=== PATIENT | female | born 1970 | race Caucasian/White ===

== ENCOUNTER 2016-09-21 08:13 | Emergency (ER) | payer MEDICAID ==
[2016-09-21 08:28] VITALS: BP 111/73
[2016-09-21 08:38] LABS: Urine Bilirubin 1 mg/dl (NEGATIVE); Urine Blood 250 /ul (NEGATIVE); Urine Ketone Negative (NEGATIVE); Urine Nitrite Negative (NEGATIVE); Urine Protein 100 mg/dL (NEGATIVE); Urine Specific Gravity 1.025 SP.GR. (1.005-1.010); Urine Urobilinogen Normal (NORMAL)
--- NOTE | 2016-09-21 08:46 | ERNOTE ---
ER Female HPI Date of Service: 09/21/16 Stated Complaint: UTI Time Seen by Provider: 09/21/16 08:33 Source: patient Exam Limitations: no limitations Allergies/Adverse Reactions: Allergies codeine Allergy (Unknown, Verified 09/21/16 08:28) Home Medications: HOME MEDICATIONS Cefuroxime Axetil [Ceftin] 250 mg PO Q12H #20 tab 09/21/16 [Last Taken Unknown] - History of Present Illness Narrative: Patient presents to the ED because "I have a UTI". SHe relates that she started having dysuria and some blood in her urine this morning. No abdominal pain. No fever. She had a close family contact with influenza so is on Tamifliu. SHe has had some sinus congestion since having 16 teeth removed. No fever. Not currently on antibiotics. No vomiting, no flank pain. Notices this with urination. Timing: Present: constant Quality: Present: moderate Onset Location: Present: other - no abominal pain, only dysuria Radiation: Present: none Activities at Onset: Present: none Modifying Factors - (Improves): Present: other - nothing Modifying Factors - (Worsens): Present: other - urination Associated Symptoms: Absent: fever/chills, nausea, vomiting, abdominal pain Review of Systems - Review of Systems Constitutional: Absent: fever ENT: Present: nose congestion Respiratory: Absent: shortness of breath Cardiology: Absent: chest pain Gastrointestinal/Abdominal: Absent: vomiting, abdominal pain Genitourinary: Present: See HPI, other - no flank pain - Patient's Past Medical History Patient History - Medical: Other Patient History - Cardiac/Respiratory: No pertinent hx Patient History - Cancer: No Hx of Cancer Patient History - Surgical Procedures: Cholecystectomy, Hysterectomy - Social History Smoking Status: Current every day smoker Have you smoked in the past 12 months: Yes Physical Exam - Physical Exam General Appearance: Present: alert, no apparent distress Eye Exam: Normal inspection: bilateral, PERRL: bilateral Ears, Nose, Throat: Present: other - mild nasal congestion. 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 Absent: motor weakness Skin Exam: Absent: skin rash ED Progress - Results and Orders Patient's Lab Results:: I have reviewed the patient's lab results. - Vital Signs Patient's Vital Signs:: I have reviewed the patient's vital signs. Vital Signs: Vital Signs 09/21/16 08:24 Temperature 36.4 C L Pulse Rate 80 Respiratory 14 Rate Blood Pressure 111/73 O2 Sat by Pulse 97 Oximetry - Progress/Reassessment Chief Complaint: Genitourinary Problem Departure Clinical Impression: UTI (urinary tract infection) - Departure Disposition: Home self-care Instructions: Urinary Tract Infection, Adult, [id number] Additional Instructions: Rest. FLuids. Follow-up with your doctor in 3 days for a re-check. Antibiotic as directed. Return for fever, vomiting, flank pain or if your condition worsens or changes i any way. Referrals: Talat Handley MD [Primary Care Provider] - Prescriptions: Cefuroxime Axetil [Ceftin] 250 mg PO Q12H #20 tab
[2016-09-21 08:47] LABS: Urine Appearance Bloody; Urine Bacteria None Seen; Urine RBC >50 /hpf (0-5)
== END 2016-09-21 09:12 | disposition home or self-care (01) ==
LOC: ER 08:13
DX: N39.0 Urinary tract infection, site not specified (principal); F17.210 Nicotine dependence, cigarettes, uncomplicated; Z90.49 Acquired absence of other specified parts of digestive tract; Z90.710 Acquired absence of both cervix and uterus

== ENCOUNTER 2016-10-06 08:35 | Day surgery (SDC) | payer MEDICAID ==
[~2016-10-06 08:35] MED LIST: RINGERS SOLUTION,LACTATED 1,000 ML IV PRN
[2016-10-06] MEDS ORDERED: RINGERS SOLUTION,LACTATED 1,000 ML IV ONE (09:11)
[2016-10-06 12:25] VITALS: BP 98/62
--- NOTE | 2016-10-07 09:34 | OR ---
Operative Report - Dictated Report Narrative: OPERATIVE REPORT DATE OF OPERATION: 10/06/2016 PREOPERATIVE DIAGNOSIS: No recent dedicated colon studies POSTOPERATIVE DIAGNOSIS: 5 mm and 2 mm areas of polypoid change at 25 cm ( pathology pending) OPERATION: Colonoscopy with hot biopsy forceps polypectomy and snare polypectomy at 25 cm SURGEON: Socorro Felipe MD ANESTHESIA: AMALIA Garay CRNA INDICATIONS FOR PROCEDURE: The patient is a 46-year-old female referred by Dr. Handley. The patient has a long history of irritable bowel syndrome. She had a colonoscopy over 10 years ago. She has very irregular bowels. There is no family history of cancer FINDINGS: Very capacious colon. 5 mm area of possible polypoid change at 25 cm with very small adjacent area of polypoid change (pathology pending) NARRATIVE OF PROCEDURE: The patient was identified in the holding area, and prior to the administration of anesthetic, a multidisciplinary timeout was observed. With the patient in the left lateral position and after the administration of intravenous sedation, the perineum was inspected. There was no evidence of pilonidal disease or skin breakdown. The external appearance of the anus was normal. Sphincter tone was good. The flexible fiberoptic colonoscope was inserted into the rectum which was insufflated with air. The rectal mucosa and submucosal vascular pattern appeared normal, the prep was seen to be complete. The scope was advanced through the sigmoid colon, up the descending colon, and around the splenic flexure where the triangular haustral architecture of the transverse colon was seen. The scope was advanced across the transverse colon, around the hepatic flexure to the cecum, where the confluence of tenia and the ileocecal valve were identified. The mucosa at this level appeared normal. The scope was then slowly withdrawn in a circular fashion so that all aspects of colonic mucosa were inspected. The colon was very capacious in character. The haustral architecture appeared well preserved throughout with no evidence of external compression. The mucosa and submucosal vascular pattern appeared normal, specifically there was no gross evidence to suggest colitis or inflammatory bowel disease and no AV malformations were seen. No diverticulosis was demonstrated. At 25 cm a flat area of possible polypoid change was identified. There was an additional smaller area of polypoid change adjacent to this. The smaller area was biopsied and and thoroughly destroyed with electrocautery. The site appeared complete and hemostatic. The larger area of polypoid change was then biopsied and treated with electrocautery. The area was then amenable to snare removal. The polyp was amputated with cautery snare, retrieved, and submitted to pathology. The scope was readvanced to the polypectomy site and the base was additionally treated to ensure that the area was complete and hemostatic. The scope was gradually withdrawn to the level of the rectum. As much insufflated air as possible was removed. The scope was withdrawn from the patient and the procedure terminated. The patient tolerated the anesthetic and procedure well without complication and was transferred back to the ambulatory surgery area awake and in stable condition. The patient remained stable throughout a period of postoperative observation. She denied abdominal discomfort, was able to tolerate by mouth intake, and was up without assistance. I shared the operative findings with the patient and she was given copies of the photographs which appear in the medical record. She was discharged home with instructions not to engage in hazardous activity today , but may resume normal activity tomorrow, and advance diet as tolerated. She is to continue those medications as listed in the history and physical exam. I made arrangements to contact her with the biopsy reports and will make additional recommendations for treatment and follow-up based upon those results. Reviewed and electronically signed
== END 2016-10-06 08:36 | disposition home or self-care (01) ==
LOC: AMB 08:35
PROVIDERS: ATTEND Surgery
PROC: 0DBE8ZX Excision of Large Intestine, Via Natural or Artificial Opening Endoscopic, Diagnostic (ICD-10-PCS; 2016-10-06)
PROC: 0DBE8ZX Excision of Large Intestine, Via Natural or Artificial Opening Endoscopic, Diagnostic (ICD-10-PCS; principal; 2016-10-06 10:00)
DX: Z12.11 Encounter for screening for malignant neoplasm of colon (principal); K63.5 Polyp of colon; K58.9 Irritable bowel syndrome, unspecified; F17.200 Nicotine dependence, unspecified, uncomplicated; Z68.21 Body mass index [BMI] 21.0-21.9, adult